=== PATIENT | female | born 1985 | race Caucasian/White ===

== ENCOUNTER 2018-07-21 15:59 | Emergency (ER) | payer OTHER ==
[~2018-07-21] VITALS: Ht 162.6 cm; Wt 66.7 kg
[2018-07-21 16:11] VITALS: BP_SYST 158
[2018-07-21 16:41] LABS: BILIRUBIN,URINE NEGATIVE (NEGATIVE); BLOOD, URINE NEGATIVE (NEGATIVE); CLARITY/URINE CLEAR (CLEAR); COLOR,URINE YELLOW (YELLOW); GLUCOSE,URINE NEGATIVE (NEGATIVE); KETONES,URINE NEGATIVE (NEGATIVE); LEUKOCYTE ESTERASE ,URINE 1+ (NEGATIVE); NITRITE, URINE NEGATIVE (NEGATIVE); PROTEIN URINE NEGATIVE (NEGATIVE); UROBILINOGEN,URINE 0.2 (0.2-1.0)
[2018-07-21 16:45] LABS: BACTERIA,URINE MODERATE /HPF (None Seen); RBC,URINE 0-3 /HPF (0-3)
--- NOTE | 2018-07-21 16:45 | NUR ---
Patient to ER bed 07 to gown for evaluation. Side rails up.
--- NOTE | 2018-07-21 16:45 | NUR ---
patient AOx4 from work with c/o sob, generalized tingling since 2pm. patient states she has never had this type of complaint before but has anxiety that she smokes marijuana nightly for it. patient states she was working on her computer at work and began feeling symptoms while looking at the computer. no other complaint or injury otherwise stated.
--- NOTE | 2018-07-21 16:45 | NUR ---
MSE performed by myself.
--- NOTE | 2018-07-21 16:45 | NUR ---
DEVI Adams at bedside examining patient.
[2018-07-21] MEDS ORDERED: LORazepam 1 MG TABLET PO ONE (17:00)
[2018-07-21 17:46] VITALS: BP_SYST 140
--- NOTE | 2018-07-21 17:46 | NUR ---
Patient given written and verbal discharge instructions and verbalizes understanding. ER MD discussed with patient the results and treatment provided. Patient in stable condition. ID arm band removed. Rx of Macrobid given. Patient educated on pain management and to follow up with PMD. Pain Scale 0/10. Opportunity for questions provided and answered. Medication side effect fact sheet provided.
== END 2018-07-21 17:46 | disposition home or self-care (01) ==
LOC: SED 15:59
DX: F41.9 Anxiety disorder, unspecified (principal); N39.0 Urinary tract infection, site not specified; F12.90 Cannabis use, unspecified, uncomplicated; R03.0 Elevated blood-pressure reading, without diagnosis of hypertension
CPT/HCPCS: 81000-TC; 81025; 87086; 93005; 99284